=== PATIENT | female | born 2000 | race Two or more races ===

== ENCOUNTER 2019-01-07 16:06 | Emergency (ER) | payer MEDICAID ==
[~2019-01-07] VITALS: Ht 157.5 cm; Wt 72.0 kg
[~2019-01-07 16:06] MED LIST: ACET-890 PO
[2019-01-07 16:20] VITALS: BP 141/75
== END 2019-01-07 16:38 | disposition home or self-care (01) ==
LOC: ER 16:06
DX: J45.909 Unspecified asthma, uncomplicated (principal); Z91.013 Allergy to seafood; Z79.899 Other long term (current) drug therapy
CPT/HCPCS: 99281

== ENCOUNTER 2019-07-07 14:52 | Emergency (ER) | payer MEDICAID ==
[~2019-07-07] VITALS: Ht 160 cm; Wt 82.4 kg
[2019-07-07 15:29] VITALS: BP 141/69
--- NOTE | 2019-07-07 15:45 | NUR ---
Pt had nose bleed earlier today that lasted approx 1 hour. No bleeding at this time.
[2019-07-07] MEDS ORDERED: OXYM30SP26 BOTHNARES (15:52)
[2019-07-07] MEDS ORDERED: AMOX-422 PO (15:52)
== END 2019-07-07 16:10 | disposition home or self-care (01) ==
LOC: ER 14:52
DX: R04.0 Epistaxis (principal); J32.9 Chronic sinusitis, unspecified; J45.909 Unspecified asthma, uncomplicated; Z91.013 Allergy to seafood; Z79.899 Other long term (current) drug therapy
CPT/HCPCS: 99283

== ENCOUNTER 2021-05-28 02:14 | Emergency (ER) | payer MEDICAID ==
[~2021-05-28] VITALS: Ht 160 cm; Wt 89.4 kg
[~2021-05-28 02:14] MED LIST changes: +OXYM30SP26 BOTHNARES
[2021-05-28 02:45] VITALS: BP 150/94
== END 2021-05-28 05:17 | disposition left against medical advice (07) ==
LOC: ER 02:14
DX: R06.89 Other abnormalities of breathing (principal); Z53.21 Procedure and treatment not carried out due to patient leaving prior to being seen by health care provider